=== PATIENT | female | born 1995 | race Caucasian/White ===

== ENCOUNTER 2020-03-21 12:30 | Emergency (ER) | payer BC ==
[2020-03-21] MEDS ORDERED: fentaNYL 100 MCG/2 ML SDV IVPUSH ONE (12:43)
[2020-03-21] MEDS ORDERED: fentaNYL 100 MCG/2 ML SDV IM ONE ×2 (12:47→13:12)
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
[2020-03-21 13:02] LABS: CHLORIDE,CL 101 mEq/L (98-106); SODIUM,NA 136 mEq/L (136-145)
[2020-03-21] MEDS ORDERED: Ondansetron 4 MG Tab.DIS PO ONE ×2 (13:09→16:15)
[2020-03-21] MEDS ORDERED: HYDROmorphone 1 MG/ML Syringe IVPUSH ONE ×2 (13:43→15:02)
[2020-03-21] MEDS ORDERED: Ondansetron 4 MG Tab.DIS ONE (15:57)
== END 2020-03-21 16:19 ==
LOC: CC.ED 12:30
DX: R10.31 Right lower quadrant pain (principal)
CPT/HCPCS: 36415; 76856; 80048; 81001; 85025; 96372; 96374; 96376; 99285; A9270; J1170; J3010